=== PATIENT | male | born 1930 | race Caucasian/White ===

== ENCOUNTER 2017-10-27 18:46 | Emergency (ER) | payer MEDICARE, BC ==
[~2017-10-27] VITALS: Ht 177.8 cm; Wt 68.0 kg
[~2017-10-27 18:46] MED LIST: ACET500 PO; ALPR.25 PO; AMIT10 PO; AMIT25; AMIT50 PO; AMOX875 PO; ASCO500 PO; ASPI325; ASPI81CH PO; ASPI81EC PO; AZIT250 PO; Co Q-10300 MG PO; DIABETIC PILL; DIAZ2 PO; DIGO.25; DIGO.25 PO; DIPH12.5EL PO; DOXE10 PO; FERGLU300 PO; FISH1000 PO; Ferrous Sulfat324 MG PO; GLYB2.5 PO; GUAI600T33 PO; Garlic Oil1000 MG PO; Glucophage Xr750 MG PO; Guaifenesin-Co118 ML PO; HYDACE5325 PO; HYDCHL12.5 PO; HYDPAM25 PO; HYDPAM50 PO; LEVFLO500 PO; LISI5 PO; LOSHYD100 PO; LOVA40 PO; Lisinopril2.5 MG PO; METF500; METF500C PO; MICROZIDE12.5 MG PO; MULVITMINF PO; NADO20 PO; NADO40; NADO40 PO; NADOL; NADOL PO; NAPR220 PO; NITR.4SL SL; OXYC40ER PO; OXYC5 PO; Omega 3 1,0001 EACH PO; Omeprazole20 M1 PO; PANT20 PO; PANT40 PO; PIOG15; Prilosec Otc20 MG PO; TAMS.4ER PO; TRAN2 PO; Zofran Odt4 MG PO
[2017-10-27 19:24] LABS: BASOPHILS ABSOLUTE AUTO 0.03 K/mm3 (0.00-0.23); BASOPHILS PERCENT AUTO 0 % (0-2); EOSINOPHILS ABSOLUTE AUTO 0.43 K/mm3 (0.00-0.68); EOSINOPHILS PERCENT AUTO 5 % (0-6); Hematocrit 33.8 % (37.0-53.0); Hemoglobin 10.8 g/dL (13.5-17.5); IMMATURE GRAN ABSOLUTE AUTO 0.02 K/mm3 (0.00-0.10); IMMATURE GRAN PERCENT AUTO 0 % (0-1); LYMPHOCYTES ABSOLUTE AUTO 1.87 K/mm3 (0.84-5.20); LYMPHOCYTES PERCENT AUTO 23 % (21-46); MONOCYTES ABSOLUTE AUTO 0.57 K/mm3 (0.16-1.47); MONOCYTES PERCENT AUTO 7 % (4-13); Mean Corpuscular Volume 97 fL (80-100); Mean Platelet Volume 9.2 fL (9.1-12.4); NEUTROPHILS ABSOLUTE AUTO 5.14 K/mm3 (1.96-9.15); NEUTROPHILS PERCENT AUTO 64 % (41-73); Platelet Count 258 K/mm3 (150-400); RDW Coefficient Variation 13.6 % (11.7-14.2); RDW Standard Deviation 47.9 fL (35.1-46.3); Red Blood Cell Count 3.48 M/mm3 (4.30-5.90); White Blood Cell Count 8.06 K/mm3 (4.00-11.30)
[2017-10-27 19:41] LABS: Alanine Aminotransfer (ALT/SGP 17 U/L (12-78); Albumin, Blood 3.7 g/dL (3.4-5.0); Albumin/Globulin Ratio 0.9 (0.8-1.8); Alk Phos 62 U/L (50-136); Anion Gap 6 mmol/L (6-16); Aspartate Aminotrans (AST/SGOT 20 U/L (12-37); Bilirubin, Total 0.3 mg/dL (0.1-1.0); Blood Urea Nitrogen 31 mg/dL (8-24); Bun/Creatinine Ratio 28.7 (12.0-20.0); CO2, Blood 29 mmol/L (21-32); Calcium, Blood 9.5 mg/dL (8.5-10.1); Chloride, Blood 99 mmol/L (98-108); Creatinine, Blood 1.08 mg/dL (0.60-1.20); Globulin, Blood 3.9 g/dL (2.2-4.0); Glomerular Filtration Rate >60 (60-); Glucose, Blood 172 mg/dL (70-99); Potassium, Blood 4.7 mmol/L (3.5-5.5); Sodium, Blood 134 mmol/L (136-145); Total Protein, Blood 7.6 g/dL (6.4-8.2)
[2017-10-27] MEDS ORDERED: LEVO750 PO (20:48)
[2017-10-27] MEDS ORDERED: Guaifenesin-Co118 ML PO (20:48)
[2017-10-27] MEDS ORDERED: Zofran Odt4 MG PO (20:48)
== END 2017-10-27 21:08 | disposition home or self-care (01) ==
LOC: ER 18:46
PROVIDERS: Physician Assistant
DX: J18.9 Pneumonia, unspecified organism (principal); R11.0 Nausea; I10 Essential (primary) hypertension; Z88.8 Allergy status to other drugs, medicaments and biological substances; Z79.82 Long term (current) use of aspirin; Z79.84 Long term (current) use of oral hypoglycemic drugs; Z79.899 Other long term (current) drug therapy; Z95.2 Presence of prosthetic heart valve; Z95.1 Presence of aortocoronary bypass graft
CPT/HCPCS: 36415; 71020; 80053; 85025; 93005; 93010; 96361; 96374; 99284; J2405; J7030